=== PATIENT | female | born 1985 | race Caucasian/White ===

== ENCOUNTER 2018-11-25 08:48 | Inpatient (IN) ==
[2018-11-25] MEDS ORDERED: LACTATED RINGER'S 1,000 ML IV PRN ×2 (10:05→15:22)
[2018-11-25] MEDS ORDERED: miSOPROStol 50 MCG TAB PO ONE (10:05)
[2018-11-25] MEDS ORDERED: OXYTOCIN 30 UNITS/500 ML BAG IV PRN ×2 (10:05→15:22)
[2018-11-25] MEDS ORDERED: CEFAZOLIN 2000MG 2,000 MG/15 ML SYR IV STA (10:20)
[2018-11-25] MEDS ORDERED: CEFAZOLIN 1000MG 1,000 MG/7.5 ML SYR IV PRN (10:29)
[2018-11-25 10:33] LABS: Hematocrit (blood only) 38.4 % (37-47); Mean Corpuscular Volume 84.4 fL (80-100); Mean Platelet Volume 10.7 fL (7.4-10.4); Platelet Count 282 K/uL (130-400); RDW Coefficient of Variation 14.5 % (11.5-14.5); Red Blood Count 4.55 M/uL (4.2-5.4)
[2018-11-25 10:41] LABS: Mean Corpuscular Hgb Conc 33.9 g/dL (32-36)
[2018-11-25] MEDS ORDERED: ONDANSETRON 4 MG TAB PO PRN (15:22)
[2018-11-25] MEDS ORDERED: ONDANSETRON INJ 2 MG/ML 2 ML VIAL ONE (16:04)
[2018-11-25] MEDS: LACTATED RINGER'S 1,000 ML IV SCH ×2 (16:12→21:24)
[2018-11-25] MEDS ORDERED: Nursing to Pharmacy Communication ONE (18:07)
[2018-11-25] MEDS: ONDANSETRON INJ 2 MG/ML 2 ML VIAL IV PRN (21:25)
[2018-11-26] MEDS: ONDANSETRON INJ 2 MG/ML 2 ML VIAL IV PRN (01:33)
[2018-11-26] MEDS: LACTATED RINGER'S 1,000 ML IV SCH (02:28)
[2018-11-26] MEDS ORDERED: METHYLERGONOVINE MALEATE 0.2 MG/ML AMP ONE (05:53)
[2018-11-26] MEDS ORDERED: BENZOCAINE 20% AER SPR 82.5 GM CAN EXT PRN (05:57)
[2018-11-26] MEDS ORDERED: HYDROCORTISONE ACETATE 25 MG SUPP PR PRN (05:57)
[2018-11-26] MEDS ORDERED: ACETAMINOPHEN W/CODEINE #3 1 TAB PO PRN (05:57)
[2018-11-26] MEDS ORDERED: SUPERCREAM 0.870% 15 GM JAR EXT PRN (05:57)
[2018-11-26] MEDS ORDERED: METHYLERGONOVINE MALEATE 0.2 MG/ML AMP IM ONE (05:57)
[2018-11-26] MEDS ORDERED: OXYTOCIN 30 UNITS/500 ML BAG IV PRN (05:57)
[2018-11-26] MEDS ORDERED: OXYCODONE/ACETAMINOPHEN 5mg/325mg TAB PO PRN (05:57)
[2018-11-26] MEDS ORDERED: ACETAMINOPHEN 325 MG TAB PO PRN (05:57)
[2018-11-26] MEDS ORDERED: DIPHTHERIA/TETANUS/PERTUSSIS 0.5 ML SYR/VIAL IM ONE (05:57)
--- NOTE | 2018-11-26 06:59 | Operative Report ---
DATE OF OPERATION: 11/26/2018 Mrs. Billings was admitted with a history of ruptured membranes. Her membranes had ruptured at 3:00 a.m. on 11/25/2018. After admission to the hospital, diagnosis of olivia rupture of membranes was confirmed by Nitrazine positive test. She was not having any contractions. She was a vertex presentation. Cervix is 3 cm, thin. She was given p.o. Cytotec 50 mcg, and then about 5 hours later, she was started on IV Pitocin. With the Pitocin, she went to full dilatation, delivered a live infant via direct occiput anterior position over an intact perineum, moderate amount of molding, tight nuchal cord presented itself after delivery of the head. It had to be clamped and cut and shoulders were delivered without difficulty. Infant was suctioned through the mouth and the nose prior to delivery of the shoulders. With IV Pitocin running, the placenta was removed intact. We also gave her 0.2 of Methergine to contract the uterus. There was superficial laceration of the right labia minora and the small superficial first-degree laceration. These were infiltrated with local and repaired with a running 3-0 chromic. Following this, vaginal examination revealed no hematoma formation or sponges in the vagina. Estimated blood loss was 200 mL. The patient tolerated the delivery well. I attest to the content of the Intraoperative Record and any orders documented therein. Any exception s are noted below.
[2018-11-26] MEDS: FERROUS SULFATE 325 MG TAB PO SCH (08:04)
[2018-11-26] MEDS: PRENATAL VITAMIN 1 TAB PO SCH (08:04)
[2018-11-26] MEDS: DOCUSATE SODIUM 100 MG CAP PO SCH ×2 (08:04→20:25)
[2018-11-27] MEDS: IBUPROFEN 600 MG TAB PO PRN ×2 (01:32→20:13)
[2018-11-27 06:17] LABS: Hematocrit (blood only) 31.1 % (37-47); Hemoglobin 10.4 g/dL (12.0-16.0); Mean Corpuscular Hgb Conc 33.4 g/dL (32-36); Mean Corpuscular Volume 86.1 fL (80-100); Mean Platelet Volume 10.5 fL (7.4-10.4); Platelet Count 252 K/uL (130-400); RDW Standard Deviation 46.6 fL (36.4-46.3); Red Blood Count 3.61 M/uL (4.2-5.4); White Blood Count 20.19 K/uL (4.8-10.8)
[2018-11-27] MEDS: DOCUSATE SODIUM 100 MG CAP PO SCH ×2 (08:54→20:10)
[2018-11-27] MEDS: PRENATAL VITAMIN 1 TAB PO SCH (08:54)
[2018-11-27] MEDS: FERROUS SULFATE 325 MG TAB PO SCH (08:54)
--- NOTE | 2018-11-27 09:26 | Obstetrical Progress Note ---
Date of Service November 27, 2018 Physical Exam Vital Signs (Past 24 Hours): Last Vital Signs Temp 36.7 C 11/27/18 03:20 Pulse 80 11/27/18 03:20 Resp 18 11/27/18 03:20 BP 104/63 11/27/18 03:20 Pulse Ox 100 11/26/18 16:30 Physical Exam: abdomen soft and non tender vaginal bleeding scant to moderate no calf tenderness ambulating well
[2018-11-27] MEDS ORDERED: BISACODYL 5 MG TABEC PO SCH (20:00)
[2018-11-28] MEDS ORDERED: BISACODYL 10 MG SUPP PR PRN (06:00)
[2018-11-28 07:24] LABS: Hematocrit (blood only) 33.4 % (37-47); Hemoglobin 11.2 g/dL (12.0-16.0)
--- NOTE | 2018-11-28 08:10 | Obstetrical Progress Note ---
Date of Service November 28, 2018 Physical Exam Vital Signs (Past 24 Hours): Last Vital Signs Temp 36.6 C 11/27/18 23:50 Pulse 78 11/27/18 23:50 Resp 18 11/27/18 23:50 BP 128/84 11/27/18 23:50 Pulse Ox 96 11/27/18 23:50 Physical Exam: abdomen soft and non tender vaginal bleeding scant to moderate no calf tenderness ambulating well
[2018-11-28] MEDS: DOCUSATE SODIUM 100 MG CAP PO SCH (08:46)
[2018-11-28] MEDS: FERROUS SULFATE 325 MG TAB PO SCH (08:46)
[2018-11-28] MEDS: PRENATAL VITAMIN 1 TAB PO SCH (08:46)
[2018-11-28 14:25] VITALS: TEMP 97.7; O2SAT 98
[2018-11-28 16:31] VITALS: BP 112/75; PULSE 90
== END 2018-11-28 16:30 | disposition home or self-care (01) | DRG 807 ==
LOC: OPB 08:48 → 4S1 08:51 → 4S2 11-26 09:18